=== PATIENT | male | born 1970 | race Caucasian/White ===

== ENCOUNTER 2016-07-10 16:30 | Emergency (ER) | payer OTHER ==
[~2016-07-10 16:30] MED LIST: ALDACTONE 25 MG25 MG PO; ASPIR 8181 MG PO; ATORVASTATIN CA40 MG PO; CARVEDILOL3.125 MG PO; CHANTIX1 MG PO; CLONAZEPAM1 M2 PO; ESCITALOPRAM10 MG PO; FENOFIBRATE145 M1 PO; FLUTICASONE PRO16 GM NASB; METHADONE H5 MG/5 M2 PO; METHADONE HYDROC5 MG PO; NITROSTAT0.4 M1 SL; PLAVIX75 MG PO; PRINIVIL5 M1 PO; SPIRONOLACTONE25 M1 PO; TRILIPIX135 M1 PO; VITAMIN D250000 UNIT PO; ZETIA10 MG PO; [UNRECOGNIZED DRUG - SUPPLY]
[2016-07-10 16:31] VITALS: BP 162/92
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
== END 2016-07-10 17:20 | disposition left against medical advice (07) ==
LOC: ERH 16:30
DX: Z04.1 Encounter for examination and observation following transport accident (principal)